=== PATIENT | female | born 1990 | race Caucasian/White ===

== ENCOUNTER 2017-11-27 06:36 | Day surgery (SDC) | payer OTHER, SELFPAY ==
--- NOTE | 2017-11-27 | FALS_PTH ---
PATIENT: KIMO MASSEY LOC: [facility] [place] U#:[id number] AGE/SX: 27/F ROOM: RE11/27/[address]: Dr. Arielle Gaxiola MD : 1990 BED: DIS: 11/27/2017 SPEC #: [id number] RECD: 11/27/17 13:30 STATUS: TIAGO MARIANA #: [id number] JOAN: 11/27/17 00:[address]: Arielle Gaxioal DEPT: SURGICAL PATHOLOGY RECD BY: Quinton Garcia ENTERED: 11/27/17 13:30 SP TYPE: FALL TUBES OTHR DR: No Primary Care Phys Tissues: Fallopian tube Procedures: Surgery Specimen Level II HEADER OPERATION: Laparoscopic bilateral salpingectomy PRE-OP DIAGNOSIS: Sterilization request TISSUE SUBMITTED: Bilateral fallopian tubes MICROSCOPIC DIAGNOSIS Bilateral fallopian tubes, salpingectomy: Bilateral fallopian tubes including fimbrial ends, no pathologic diagnosis. SJ:jaylene 10/5/18 MICROSCOPIC DESCRIPTION Slides are reviewed. GROSS DESCRIPTION Received is one container labeled with the patient's name and designated bilateral fallopian tubes. The specimen consists of bilateral fallopian tubes including fimbrial ends measuring 6 cm in length and up to 0.5 cm in diameter and 6.5 cm in length and 0.5 cm in diameter. Sections do not reveal any mass lesion. The fallopian tubes are not identified as right or left. Sections reveal unremarkable cut surfaces. Foreign Service Teacher sections are submitted in two cassettes with each cassette containing one fallopian tube. / DEBI:jaylene 11/27/17 TC:4 CPT: 79421 x2
[2017-11-27 07:23] LABS: Hematocrit 39.5 % (37-47); Hemoglobin 13.4 g/dl (12.0-15.0); Mean Corp Hgb Conc 33.9 g/gl (32-36); Mean Corpuscular Hgb 30.9 pg (27.0-32.0); Mean Corpuscular Volume 91.2 fL (81-99); Mean Platelet Vol. 9.8 fl (6.2-12.0); Platelet Count 261 K/mm3 (150-450); RBC Distribution Width CV 11.8 % (11.6-14.6); RBC Distribution Width SD 39.2 fl (35.1-43.9); Red Blood Count 4.33 M/mm3 (4.2-5.4); White Blood Count 5.6 K/mm3 (4.4-11.0)
[2017-11-27 07:26] LABS: Scan Indicated on CBC? Y/N NO
[2017-11-27 07:28] LABS: Internal QC Validated? YES +Cl - CLEAR BKGD; Pregnancy, Urine Negative Negative
[2017-11-27 07:30] VITALS: BP 146/64; PULSE 58; RESP 16; TEMP 37.2; O2SAT 100; BMI 28.0
[2017-11-27] MEDS: Acetaminophen 500 MG Tablet 1000 MG PO (07:36)
[2017-11-27] MEDS: Celecoxib 200 MG Capsule PO (08:11)
[2017-11-27] MEDS: Bupivacaine Mpf 0.5% 30 ML VIAL (09:05)
[2017-11-27 09:31] VITALS: BP 108/73; BP 146/64; PULSE 62; RESP 14; TEMP 36.6; O2SAT 100
[2017-11-27 09:44] VITALS: BP 146/64; PULSE 55; RESP 14; O2SAT 100
--- NOTE | 2017-11-27 09:51 | DCINST_ITS ---
Discharge Diet: No Restrictions - Increase fluid intake for the next 48 hours. Discharge Activity: Return to Normal Activity, May Drive - when you are no longer taking pain/narcotic meds., May Shower, May Take a Tub Bath - in 7 days Additional Activity Instructions:: Ambulate often the next week after surgery. Nothing in the vagina for 5 days. Call your doctor if your incision/area has: Continuous Slow Oozing, Sudden Increased Bleeding, Increased Pain/ Swelling, Increased Redness, Foul Smelling Discharge Call your doctor if you observe: Fever of 101 or Higher Cleanse incision/area with: Soap & Water, - - Your incisions have skin glue. I can get wet. It will fall off. Allergies/Adverse Reactions: Allergies ciprofloxacin [From Cipro] Adverse Reaction (Verified 12/01/13 17:22) Vomiting ciprofloxacin HCl [From Cipro] Adverse Reaction (Verified 12/01/13 17:22) Vomiting ibuprofen Adverse Reaction (Verified 11/27/17 07:45) elevated heart rate elevated heart rate Medications to take at Discharge Hydrocodone/Acetaminophen [[place] 5-325 Tablet] 1 - 2 each PO Q8 PRN #7 tablet 11/27/17 Ibuprofen [Motrin] 600 mg PO Q6H PRN #60 tablet 11/27/17 The following prescriptions were given: Hydrocodone/Acetaminophen [[place] 5-325 Tablet] 1 - 2 each PO Q8 PRN #7 tablet PRN Reason: Pain Ibuprofen [Motrin] 600 mg PO Q6H PRN #60 tablet PRN Reason: Pain Primary Care Physician: Care Physician,No Primary [Primary Care Provider] - Test Results: Test results from this visit will be discussed in further detail at your follow- up appointment, if applicable. Please Follow Up With: Arielle Gaxiola MD - [phone] When: 2-4 weeks or as needed
[2017-11-27 09:59] VITALS: BP 107/62; BP 146/64; PULSE 56; RESP 14; TEMP 36.4; O2SAT 98
--- NOTE | 2017-11-27 10:22 | PCM.OPRPT ---
Report of Operation Date of Procedure: 11/27/17 Pre-Operative Diagnosis: Sterilization request Post-Operative Diagnosis: Sterilization request Surgery/Procedure Performed:: Laparoscopic bilateral salpingectomy Description of Surgical Findings:: Normal-appearing tubes ovaries and uterus. Normal-appearing liver and peritoneal cavity. investor relations director: None Type of Anesthesia:: General Anesthesiologist: Eduardo Seymour Special Medications: none Specimen's removed: bilateral fallopian tubes Drains: none Estimated Blood Loss (mL): 5cc Fluids Replaced: 1000cc LR Description of Procedure: The patient was taken to the operating room where she was prepped and draped in the dorsolithotomy position. A weighted speculum was placed in the vagina and the anterior lip of the cervix was grasped with a tenaculum. The Conn cannula uterine manipulator was placed and the remainder of the instruments were removed from the vagina. Attention was turned to the abdomen. All port sites were infiltrated with 0.5% Marcaine before skin incisions were made. A 5 mm intraumbilical incision was made. The anterior abdominal wall was tented up with 2 towel clamps while a 5 mm blade less trocar and sleeve were directly inserted. Intraperitoneal placement was confirmed with the laparoscope. The pneumoperitoneum was created and the underlying abdominal contents were intact. The patient was placed in Trendelenburg. Right and left lower quadrant ports were placed under direct visualization lateral to the inferior epigastric vessels. The bowel was swept away and the above findings were noted. The LigaSure device was used to clamp seal and transect the antimesenteric portions of the right tube to the cornual insertion of the uterus. The tube was amputated from the uterus and the pedicles were all confirmed to be hemostatic. The same procedure was performed on the contralateral side. The specimens were brought out through a 5 mm port. The pedicles were again examined and found to be hemostatic. The lateral ports were removed under direct visualization and no active bleeding was noted. The pneumoperitoneum was released. The skin incisions were closed with Monocryl suture in a subcuticular fashion and skin glue. The vaginal instruments were removed and the vaginal sweep was completed by me. The procedure was performed by me. All sponge and needle counts were correct and the patient was taken to the recovery room in stable condition. Grafts/Implants Used: none - Complications none - Admit VTE Documentation VTE Present on Admission: No VTE Mechan Device Prophylaxis: SCD's VTE Pharm Prophylaxis ordered?: No Reason prophylaxis not ordered:: Procedure Not Indicated
[2017-11-27 10:41] VITALS: BP 131/70; BP 146/64; PULSE 50; RESP 14; TEMP 36.9; O2SAT 98
== END 2017-11-27 10:46 | disposition home or self-care (01) ==
LOC: SDC 06:38 → AC 06:41
PROVIDERS: Referring Provider Obstetrics & Gynecology; Visit Provider Obstetrics & Gynecology
PROC: (CPT 58661; principal; 2017-11-27 08:15)
DX: Z30.2 Encounter for sterilization (principal); Z86.14 Personal history of Methicillin resistant Staphylococcus aureus infection; Z87.11 Personal history of peptic ulcer disease
CPT/HCPCS: 00840; 58661; 36415; 81025; 85027; 88302; J7120; J2405

== ENCOUNTER → 2018-09-28 | Outpatient (CLI) | payer BC, SELFPAY ==
[2018-09-28 10:32] LABS: Absolute Lymphocyte Count 1.49 X10^3/uL (0.83-4.51); Basophil# 0.04 X10^3/uL; Basophil% 0.8 % (0-1); Eosinophil# 0.24 X10^3/uL; Eosinophils% 4.7 % (0-5); Hematocrit 37.9 % (37-47); Hemoglobin 12.2 g/dL (12.0-15.0); Lymphocyte # 1.49 X10^3/ul (4.0); Lymphocyte % 28.9 % (19-41); Mean Corp Hgb Conc 32.2 g/dL (32-36); Mean Corpuscular Hgb 29.9 pg (27.0-32.0); Mean Corpuscular Volume 92.9 fL (81-99); Mean Platelet Vol. 10.1 fl (6.2-12.0); Monocyte# 0.41 X10^3/uL; Monocyte% 7.9 % (0-10); NRBC Flagged by Analyzer 0 % (0-5); Neutrophil # 2.97 X10^3/uL (2.7-7.7); Neutrophil % 57.5 % (47-70); Platelet Count 280 K/mm3 (150-450); RBC Distribution Width CV 11.7 % (11.6-14.6); Red Blood Count 4.08 M/mm3 (4.2-5.4); White Blood Count 5.2 K/mm3 (4.4-11.0)
[2018-09-28 10:52] LABS: Vitamin D,25 Hydroxy 21.8 ng/mL (29.95-100.01)
[2018-09-28 10:53] LABS: Anion Gap 8 (5-15); BUN 14 mg/dL (7-18); BUN/Creat Ratio 16.9 RATIO (10-20); Calcium,Total 8.8 mg/dL (8.5-10.1); Chloride 105 mmol/L (98-107); Cholesterol 182 mg/dL (200); Creatinine, Serum 0.83 mg/dL (0.55-1.02); EST Glomerular Filtration Rate 86 mL/min (>60); Est Glom Filt Rate - Afr Amer 104 mL/min (>60); Glucose 85 mg/dL (74-106); High Density Lipoprotein 71 mg/dL; Potassium 4.1 mmol/L (3.5-5.1); Sodium Level 140 mmol/L (136-145); Thyroid Stim Hormone (TSH) 1.82 uIU/mL (0.358-3.74); Triglycerides 72 mg/dL; Very Low Density Lipoprotein 14 mg/dL (5-40)
== END | disposition home or self-care (01) ==
LOC: MFPLAB 08:27
PROVIDERS: Visit Provider Family Medicine
DX: Z00.00 Encounter for general adult medical examination without abnormal findings (principal); R63.5 Abnormal weight gain
CPT/HCPCS: 36415; 80048; 80061; 82306; 84443; 85025

== ENCOUNTER → 2018-10-08 | Outpatient (CLI) | payer BC, SELFPAY | END | disposition home or self-care (01) | PROVIDERS: Referring Provider Family Medicine; Visit Provider Family Medicine | DX: R10.9 Unspecified abdominal pain (principal) | CPT/HCPCS: 87086; 87088; 87186 ==

== ENCOUNTER → 2019-05-25 10:34 | Outpatient (CLI) | payer BC, SELFPAY ==
--- NOTE | 2019-05-25 10:41 | RAD_ITS ---
STUDY: X-RAY CHEST REASON FOR EXAM: Female, 28 years old. Fever started yesterday, some sob, left posterior chest pain TECHNIQUE: PA and lateral views of the chest. COMPARISON: None. FINDINGS: The lungs are clear and expanded. Scattered calcified granulomas. There is no demonstrated pleural abnormality. Normal size heart. Normal mediastinum and laura. Normal visualized pulmonary arteries. Normal visualized aortic arch and descending thoracic aorta. Normal visualized thoracic spine. Normal visualized ribs, clavicles, and shoulders. There is no demonstrated abnormality of the visualized soft tissue structures of the upper abdomen. RAD/Chest PA and Lateral IMPRESSION: Normal x-ray examination of the chest. Electronically Signed: Gopi Zelaya, at 13:11 EDT , Service support ,
== END ==
PROVIDERS: PCP Family Medicine; Referring Provider Family Medicine; Visit Provider Family Medicine
DX: R06.02 Shortness of breath (principal)
CPT/HCPCS: 71046

== ENCOUNTER → 2019-07-01 13:58 | Outpatient (CLI) | payer BC, SELFPAY ==
--- NOTE | 2019-07-01 14:02 | RAD_ITS ---
STUDY: X-RAY CHEST REASON FOR EXAM: Female, 28 years old. FEVER OF 102.2 JUST STARTED TODAY WITH RUNNY NOSE. TECHNIQUE: PA and lateral views of the chest. COMPARISON: Comparison is made with prior examination of May 25, 2019. FINDINGS: The lungs are clear and expanded. There is no demonstrated pleural abnormality. Normal size heart. Normal mediastinum and laura. Normal visualized pulmonary arteries. Normal visualized aortic arch and descending thoracic aorta. Normal visualized thoracic spine. Normal visualized ribs, clavicles, and shoulders. There is no demonstrated abnormality of the visualized soft tissue structures of the upper abdomen. RAD/Chest PA and Lateral IMPRESSION: Normal x-ray examination of the chest. Electronically Signed: Gopi Zelaya, at 14:20 EDT , Service support ,
== END ==
PROVIDERS: PCP Family Medicine; Referring Provider Family Medicine; Visit Provider Family Medicine
DX: R50.9 Fever, unspecified (principal)
CPT/HCPCS: 71046

== ENCOUNTER → 2019-07-07 08:05 | Outpatient (CLI) | payer BC, SELFPAY ==
[2019-07-07 09:51] LABS: Absolute Lymphocyte Count 1.77 X10^3/uL (0.83-4.51); Absolute Neutrophil Count 3.5 X10^3/uL (2.0-7.7); Basophil# 0.05 X10^3/uL; Basophil% 0.8 % (0-1); Hematocrit 40.1 % (37-47); Lymphocyte # 1.77 X10^3/ul (4.0); Lymphocyte % 29.4 % (19-41); Mean Corp Hgb Conc 32.4 g/dL (32-36); Mean Corpuscular Hgb 29.5 pg (27.0-32.0); Mean Corpuscular Volume 90.9 fL (81-99); Mean Platelet Vol. 10.3 fl (6.2-12.0); Monocyte# 0.34 X10^3/uL; Monocyte% 5.6 % (0-10); NRBC Flagged by Analyzer 0 % (0-5); Neutrophil # 3.54 X10^3/uL (2.7-7.7); Neutrophil % 58.9 % (47-70); Platelet Count 287 K/mm3 (150-450); RBC Distribution Width CV 12.1 % (11.6-14.6); RBC Distribution Width SD 40.5 fl (35.1-43.9); Red Blood Count 4.41 M/mm3 (4.2-5.4)
[2019-07-07 10:08] LABS: ALB/GLOB Ratio 1.3 RATIO (0.9-2.4); AST(SGOT) 8 U/L (15-37); Alanine Aminotransfer ALT/SGPT 19 U/L (13-56); Albumin, Serum 3.9 g/dL (3.2-5.0); Alkaline Phosphatase 44 U/L (45-117); Anion Gap 8 (5-15); BUN 8 mg/dL (7-18); BUN/Creat Ratio 10.9 RATIO (10-20); Calcium,Total 8.9 mg/dL (8.5-10.1); Chloride 104 mmol/L (98-107); Creatinine, Serum 0.74 mg/dL (0.55-1.02); EST Glomerular Filtration Rate 98 mL/min (>60); Est Glom Filt Rate - Afr Amer 119 mL/min (>60); Globulin 3.1 g/dL (2.2-4.2); Glucose 96 mg/dL (74-106); Potassium 4.3 mmol/L (3.5-5.1); Sodium Level 138 mmol/L (136-145)
== END ==
PROVIDERS: PCP Family Medicine; Visit Provider Family Medicine
DX: R50.9 Fever, unspecified (principal)
CPT/HCPCS: 36415; 80053; 85025

== ENCOUNTER → 2019-07-12 08:39 | Outpatient (CLI) | payer BC, SELFPAY ==
[2019-07-13 16:51] LABS: SAR-COV-2 IGG ANTIBODY Negative (Negative)
== END ==
LOC: LAB.FUTURE 08:40 → MFPLAB 10:09
PROVIDERS: PCP Family Medicine; Visit Provider Family Medicine
DX: B34.2 Coronavirus infection, unspecified (principal)
CPT/HCPCS: 86769; G2023

== ENCOUNTER → 2020-07-20 | Outpatient (CLI) | payer OTHER, SELFPAY ==
--- NOTE | 2020-07-20 08:05 | LES_PTH ---
PATIENT: KIMO MASSEY LOC: [facility] U#:[id number] AGE/SX: 29/F ROOM: RE07/20/[address]: Dr. Davy Rankin MD : 1990 BED: DIS: 07/20/2020 SPEC #: [id number] RECD: 07/20/20 09:56 STATUS: TIAGO REToy #: [id number] JOAN: 07/20/20 08:[address]: Davy Rankin DEPT: SURGICAL PATHOLOGY RECD BY: Lenora Terry Tissues: Skin of leg, NOS Procedures: Surgery Specimen Level IV HEADER OPERATION: Punch biopsy PRE-OP DIAGNOSIS: Left leg lesion TISSUE SUBMITTED: Left leg MICROSCOPIC DIAGNOSIS Left leg lesion, punch biopsy: Dermatofibroma. DEBI:jaylene 07/21/2020 MICROSCOPIC DESCRIPTION Slides are reviewed. GROSS DESCRIPTION Received in fixative is one container labeled with the patient's name and designated punch biopsy. The specimen consists of a discoid fragment of sepulveda tissue measuring 5 mm in diameter and 2 cm in thickness. The specimen is inked, bisected and totally submitted in one cassette. / AM:jaylene 07/20/20 TC:1 [facility]: [id number]
== END | disposition home or self-care (01) ==
LOC: LABSPEC 10:14
PROVIDERS: PCP Family Medicine; Referring Provider Family Medicine; Visit Provider Family Medicine
DX: D23.72 Other benign neoplasm of skin of left lower limb, including hip (principal)
CPT/HCPCS: 88305

== ENCOUNTER → 2021-10-17 | Outpatient (CLI) | payer BC, SELFPAY ==
[2021-10-17 17:54] LABS: Absolute Lymphocyte Count 2.59 X10^3/uL (0.83-4.51); Absolute Neutrophil Count 5.5 X10^3/uL (2.0-7.7); Basophil# 0.06 X10^3/uL; Basophil% 0.7 % (0-1); Eosinophil# 0.28 X10^3/uL; Eosinophils% 3.1 % (0-5); Hematocrit 40.7 % (37-47); Hemoglobin 13.2 g/dL (12.0-15.0); Lymphocyte # 2.59 X10^3/ul (0.83-4.51); Lymphocyte % 28.8 % (19-41); Mean Corp Hgb Conc 32.4 g/dL (32-36); Mean Corpuscular Hgb 29.9 pg (27.0-32.0); Mean Corpuscular Volume 92.1 fL (81-99); Mean Platelet Vol. 10.6 fl (6.2-12.0); Monocyte# 0.54 X10^3/uL; NRBC Flagged by Analyzer 0 % (0-5); Neutrophil # 5.47 X10^3/uL (2.7-7.7); Platelet Count 344 K/mm3 (150-450); RBC Distribution Width CV 12.3 % (11.6-14.6); RBC Distribution Width SD 41.3 fl (35.1-43.9); Red Blood Count 4.42 M/mm3 (4.2-5.4)
[2021-10-17 18:33] LABS: AST(SGOT) 15 U/L (15-37); Alanine Aminotransfer ALT/SGPT 21 U/L (13-56); Albumin, Serum 3.9 g/dL (3.2-5.0); Alkaline Phosphatase 57 U/L (45-117); Anion Gap 7 (5-15); BUN 11 mg/dL (7-18); BUN/Creat Ratio 12.8 RATIO (10-20); Calcium,Total 9.1 mg/dL (8.5-10.1); Chloride 103 mmol/L (98-107); Cholesterol 251 mg/dL (200); Creatinine, Serum 0.86 mg/dL (0.55-1.02); EST Glomerular Filtration Rate 81 mL/min (>60); Est Glom Filt Rate - Afr Amer 98 mL/min (>60); Globulin 4.1 g/dL (2.2-4.2); Glucose 91 mg/dL (74-106); High Density Lipoprotein 53 mg/dL; Potassium 3.7 mmol/L (3.5-5.1); Sodium Level 136 mmol/L (136-145); Thyroid Stim Hormone (TSH) 2.66 uIU/mL (0.358-3.74); Triglycerides 193 mg/dL; Very Low Density Lipoprotein 39 mg/dL (5-40)
== END | disposition home or self-care (01) ==
LOC: MFPLAB 15:04
PROVIDERS: PCP Family Medicine; Referring Provider Family Medicine; Visit Provider Family Medicine
DX: Z00.00 Encounter for general adult medical examination without abnormal findings (principal); Z13.0 Encounter for screening for diseases of the blood and blood-forming organs and certain disorders involving the immune mechanism; Z13.228 Encounter for screening for other metabolic disorders; Z13.220 Encounter for screening for lipoid disorders; Z13.1 Encounter for screening for diabetes mellitus
CPT/HCPCS: 36415; 80053; 80061; 83036; 84443; 85025

== ENCOUNTER → 2023-02-28 | Outpatient (CLI) | payer BC, SELFPAY | END | disposition home or self-care (01) | LOC: MFPLAB 09:49 | PROVIDERS: PCP Family Medicine; Visit Provider Family Medicine | DX: Z00.00 Encounter for general adult medical examination without abnormal findings (principal) ==